=== PATIENT | male | born 1950 | race Caucasian/White ===

== ENCOUNTER → 2019-08-14 | Outpatient (CLI) | payer OTHER ==
[~2019-08-14] MED LIST: COLAZAL750 M1 PO; COMBIVENT INH; D3 + K2 DOTS 11 EACH PO; DESYREL150 MG PO; HYDROXYZINE HCL50 MG PO; KEPPRA XR500 MG PO; MELATONIN5 MG PO; MELOXICAM15 MG PO; NEURONTIN 400400 M1 PO; PROTONIX40 M2 PO; REQUIP 1 MG TABL1 M1 PO; SERTRALINE HCL100 MG PO; SYMBICORT160 MCG/4. INH; TURMERIC500 M2 PO; UNICOMPLEX M TA1 TA1 PO; VITAMIN B-121000 MC3 PO; ZANAFLEX4 M1 PO
== END ==
LOC: SJCVC 13:44 → LAB 13:44 → SJCVCIMAG 13:44
PROVIDERS: ATTEND Internal Medicine Cardiovascular Disease
DX: R00.1 Bradycardia, unspecified (principal); I44.1 Atrioventricular block, second degree; Z79.899 Other long term (current) drug therapy; Z87.891 Personal history of nicotine dependence

== ENCOUNTER 2019-08-15 11:10 | Observation (INO) | payer OTHER ==
[~2019-08-15] VITALS: Ht 175.3 cm; Wt 72.6 kg
[2019-08-15] VITALS (10 sets, daily range): BP systolic 105–142; BP diastolic 65–88
--- NOTE | ~2019-08-15 | P ---
[facility] [place] [address] PROCEDURE REPORT Name: SARAH HINSON Room #: 213-P [facility] IN M.R.#: [id number] Admission: 08/15/19 Attend Phys: Christopher Youssef MD Discharge: Date of : 52 Report #: [id number] THIS REPORT FOR: cc: Darrin Lagunas,Darrin Mckeon,Christopher Thomas MD ~ CC: Darrin Youssef DATE OF SERVICE: 08/15/2019 PACEMAKER IMPLANTATION PREOPERATIVE DIAGNOSES: 1. Presyncope. 2. Syncope. 3. Mobitz II second-degree heart block. 4. Complete heart block. The patient is a 68-year-old male with history of seizure disorders, who has recently been having near syncope and syncope with documented Mobitz II second-degree heart block and complete heart block on director of user experience. He underwent an echocardiogram yesterday showing EF of 55-60% with no significant valvular disease. PROCEDURES PERFORMED: Dual-chamber pacemaker implantation. ANESTHESIA: The patient underwent MAC anesthesia with no anesthesia related complications. During induction, the patient did have a slight seizure and was given some benzodiazepines, which allowed this to resolve. He had no further episodes during device implant. DESCRIPTION OF PROCEDURE: The patient had undergone informed consent. We discussed the details of the procedure including the risks, which include but not limited to bleeding, infection, vascular damage, cardiac perforation and pneumothorax. He understood these risks and is willing to proceed. He was brought to the EP laboratory in fasting and sedated state, prepped and draped in sterile fashion. He received IV antibiotics prior to initiation of the procedure and underwent a venogram showing patency of left axillary vein. Next, lidocaine was injected below the level of clavicle. Incision was made, pocket was created over the prepectoral fascia and access was obtained twice to the left axillary vein. Sheaths were positioned using the modified Seldinger technique. Next, leads were positioned in the right ventricular apex and the right atrium. Of note, I did have to reposition the atrial lead 3 times to find an adequate threshold. The leads were sutured to the prepectoral fascia. [facility] [address] [place] [address] PROCEDURE REPORT Name: SARAH HINSON Room #: 213-P [facility].#: [id number] Admission: 08/15/19 Attend Phys: Christopher Youssef MD Discharge: Date of : 52 Report #: [id number] Device was connected. Tug test performed. Pocket irrigated with vancomycin and then the pocket closed in 2 layers with surgical glue placed to the outer skin layer. The patient awoke neurologically and hemodynamically intact. No complications and no significant bleeding. The implanted pacemaker was a Medtronic model [place], MRI compatible, serial #[id number]. The leads were Medtronic leads. Atrial lead was a model #5076, 52 cm, serial #[id number] with a P-wave of 3.2 millivolts, pacing impedance 706 ohms, pacing threshold 0.5 volts at 0.5 milliseconds. The RV lead was a 5076, 58 cm, serial #[id number] with a R-wave of 8.7 millivolts, pacing impedance of 855 ohms and a pacing threshold of 0.8 volts at 0.5 milliseconds. The device was programmed to DDDR 60-130 mode. CONCLUSIONS: 1. Successful dual-chamber pacemaker implantation. 2. Satisfactory atrial and ventricular pacing and sensing thresholds. By: [id number] Christopher Youssef MD /nt
[2019-08-15 12:11] LABS: ABSOLUTE NEUTROPHILS 3.9 thou/uL (1.4-8.2); EOSINOPHILS 2.2 % (0.0-3.0); HEMATOCRIT 48.6 % (42.0-52.0); HEMOGLOBIN 16.2 gm/dL (14.0-18.0); LYMPHOCYTES 35.4 % (24.0-44.0); MCH 31.8 pg (26.0-34.0); MCHC 33.3 g/dL (28.0-37.0); MCV 95.4 fL (80.0-100.0); MONOCYTES 10.5 % (1.0-8.0); PLATELET COUNT 209 thou/uL (150-400); POLYS 50.9 % (36.0-66.0); RDW 12.6 % (10.5-14.5); WBC 7.7 thou/uL (4.0-11.0)
[2019-08-15 12:19] LABS: CREATININE 1.2 mg/dL (0.7-1.3); POTASSIUM 4.5 mmol/L (3.5-5.1)
[2019-08-15 12:22] LABS: APTT 33.6 Seconds (24.5-32.8); PROTIME 10.4 Seconds (9.3-11.4)
[2019-08-15 12:26] LABS: ALBUMIN 3.6 g/dL (3.4-5.0); TOTAL BILIRUBIN 0.9 mg/dL (0.2-1.0); TOTAL PROTEIN 7.2 g/dL (6.4-8.2)
[2019-08-15] MEDS ORDERED: SERTRALINE HCL100 MG PO (12:28)
[2019-08-15] MEDS ORDERED: COLAZAL750 M1 PO (12:29)
[2019-08-15] MEDS ORDERED: NEURONTIN 400400 M1 PO (12:30)
[2019-08-15] MEDS ORDERED: SYMBICORT160 MCG/4. INH (12:30)
[2019-08-15] MEDS ORDERED: HYDROXYZINE HCL50 MG PO (12:32)
[2019-08-15] MEDS ORDERED: COMBIVENT INH (12:34)
[2019-08-15] MEDS ORDERED: MELOXICAM15 MG PO (12:35)
[2019-08-15] MEDS ORDERED: KEPPRA XR500 MG PO (12:35)
[2019-08-15] MEDS ORDERED: PROTONIX40 M2 PO (12:36)
[2019-08-15] MEDS ORDERED: REQUIP 1 MG TABL1 M1 PO (12:36)
[2019-08-15] MEDS ORDERED: ZANAFLEX4 M1 PO (12:37)
[2019-08-15] MEDS ORDERED: DESYREL150 MG PO (12:38)
[2019-08-15] MEDS ORDERED: TURMERIC500 M2 PO (12:39)
[2019-08-15] MEDS ORDERED: VITAMIN B-121000 MC3 PO (12:40)
[2019-08-15] MEDS ORDERED: D3 + K2 DOTS 11 EACH PO (12:42)
[2019-08-15] MEDS ORDERED: MELATONIN5 MG PO ×2 (12:42→12:43)
[2019-08-15] MEDS ORDERED: UNICOMPLEX M TA1 TA1 PO (12:44)
--- NOTE | 2019-08-15 19:43 | NUR ---
ASSESSMENT DOCUMENTED. VSS. POST OP SITE L CHEST C/D/I. NO HEMATOMA. ARDEN. SEIZURE PRECAUTIONS IN PLACE. NO PAIN REPORTED BY THE PT. SR/SB ON THE MONITOR. PT RESTING IN BED WITH CALL LIGHT IN REACH. WILL CONTINUE TO MONITOR.
[2019-08-16 00:45] VITALS: BP 123/68
[2019-08-16 04:45] VITALS: BP 134/77
--- NOTE | 2019-08-16 06:14 | NUR ---
PATIENTS CARES WERE ASSUMED AT SHIFT CHANGE. PATIENT WAS ASSESSED AND MEDS WERE PASSED. PATIENT WS UPSET SO HE STATED HE ASKED FOR A COKE AT 330 AND NEVER GOT ONE. TOOK THE PATIENT A COKE WITH EVENING MEDS. NOT GOOD ENOUGH MINE IS THE WRONG BRAND.PATIENTS LEFT AND SECURITY WOULD NOT LET HER BACK IN. THIS UPSET THE PATIENT. PATIENT STATED HIS HEART DOC SAID SHE COULD STAY. PATIENT STATED HE WAS GOING HOME AMA. CALLED DR. FELIPA BELTRAN TO LET HIM KNOW WHAT WAS GOING ON.REMINED PATIENT IF HE LEAVES THE INSURANCE WILL NOT PAY FOR THE ULTRASOUND OR THE PACEMACER, PATIENT DID STAY QUIETKY IN HIS ROON ROUNDS WERE DONE AND THE BED IS IN A LOW AND LOCKED POSITION.
[2019-08-16 09:06] VITALS: BP 134/77
--- NOTE | 2019-08-16 11:12 | NUR ---
DISCONTINUE IV LEFT AND RIGHT AC AND TELE. PT UNDERSTANDS ALL FOLLOW UP ORDERS. PT DISCHARGED TO HOME VIA PRIVATE VEHICLE.
== END 2019-08-16 11:05 | disposition home or self-care (01) ==
LOC: CATH 11:10 → 2N 15:43
PROVIDERS: ADMIT Internal Medicine Cardiovascular Disease; ATTEND Internal Medicine Cardiovascular Disease
DX: I49.5 Sick sinus syndrome (principal); I44.1 Atrioventricular block, second degree; I44.2 Atrioventricular block, complete; F41.9 Anxiety disorder, unspecified; M19.90 Unspecified osteoarthritis, unspecified site; J44.9 Chronic obstructive pulmonary disease, unspecified; K50.90 Crohn's disease, unspecified, without complications; G47.00 Insomnia, unspecified; I51.7 Cardiomegaly; G47.33 Obstructive sleep apnea (adult) (pediatric); G40.909 Epilepsy, unspecified, not intractable, without status epilepticus
CPT/HCPCS: 62110; 62900; 70005

== ENCOUNTER → 2019-08-22 | Outpatient (CLI) | payer OTHER | LOC: SJCVC 14:48 | PROVIDERS: ATTEND Internal Medicine Cardiovascular Disease | DX: Z45.018 Encounter for adjustment and management of other part of cardiac pacemaker (principal); I44.2 Atrioventricular block, complete; I44.1 Atrioventricular block, second degree; Z79.899 Other long term (current) drug therapy; Z87.891 Personal history of nicotine dependence ==